=== PATIENT | female | born 1995 | race Hispanic/Latino ===

== ENCOUNTER 2017-05-11 19:52 | Emergency (ER) | payer SELFPAY ==
[2017-05-11 20:17] VITALS: TEMP 97.9
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
[2017-05-11 22:55] VITALS: BP 117/76; PULSE 94; RESP 16; O2SAT 100
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
== END 2017-05-11 22:55 | disposition home or self-care (01) ==
LOC: ED 19:52
DX: M79.602 Pain in left arm (principal); M54.9 Dorsalgia, unspecified